=== PATIENT | female | born 1965 | race Caucasian/White ===

== ENCOUNTER 2019-09-24 17:25 | Inpatient (IN) | payer MEDICARE, MEDICAID ==
[~2019-09-24] VITALS: Ht 167.6 cm; Wt 83.0 kg
[2019-09-24] MEDS ORDERED: PANTOPRAZOLE 80 MG in SODIUM CHLORIDE 0.9% 50 ML IV ONE (17:43)
--- NOTE | 2019-09-24 17:55 | NUR ---
THIS IS A 54 YO FEMALE BIB EMS FROM [facility] FOR DIAGNOSIS OF ANEMIA R/T GI BLEED, LEFT SIDED PLEURAL EFFUSION AND PNA. PATIENT HAS BEEN SICK SINCE THIS PAST WEEKEND WITH +N/V AND WEAKNESS. PATIENT ARRIVES ON 2L NC SPO2 AT 100%, TITRATED DOWN TO 1.5L, AT 98%. IVF INFUSING EN ROUTE. 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 VSS, NADN AT THIS TIME. CALL LIGHT IN REACH. WILL CONTINUE TO MONITOR.
--- NOTE | 2019-09-24 18:03 | NUR ---
REPORT GIVEN TO NOAM CARRANZA. PLAN OF CARE DISCUSSED
[2019-09-24] MEDS ORDERED: LISI5TAB7 PO (18:10)
[2019-09-24] MEDS ORDERED: MELO7.5T31 PO (18:11)
[2019-09-24] MEDS ORDERED: METF500T17 PO (18:11)
[2019-09-24] MEDS ORDERED: GABA600T7 PO (18:11)
[2019-09-24 18:12] LABS: BASOPHILS # (AUTO) 0.03 x10^3/uL (0-0.1); BASOPHILS % (AUTO) 0 % (0-1); EOSINOPHILS # (AUTO) 0.12 x10^3/uL (0-0.4); EOSINOPHILS % (AUTO) 2 % (1-7); LYMPHOCYTES # (AUTO) 1.45 x10^3/uL (1-3.4); LYMPHOCYTES % (AUTO) 21 % (22-44); MD NO; MEAN CORPUSCULAR HEMOGLOBIN 32.3 pg (27.0-34.8); MEAN CORPUSCULAR HGB CONC 32.9 g/dL (32.4-35.8); MEAN PLATELET VOLUME 7.7 fL (7.4-10.4); MONOCYTES # (AUTO) 0.51 x10^3/uL (0.2-0.8); MONOCYTES % (AUTO) 8 % (2-9); NEUTROPHILS # (AUTO) 4.75 x10^3/uL (1.8-6.8); NEUTROPHILS % (AUTO) 69 % (42-75); PLATELET COUNT 276 x10^3/uL (130-400); RED BLOOD COUNT 2.44 x10^6/uL (3.82-5.3); RED CELL DISTRIBUTION WIDTH 13.7 % (9.6-15.2)
[2019-09-24] MEDS ORDERED: FEXO1TAB29 PO (18:12)
[2019-09-24 18:17] LABS: ALANINE AMINOTRANSFERASE 38 U/L (12-78); ALBUMIN 3.3 g/dL (3.4-5.0); ANION GAP 7 mmol/L (5-15); CALCIUM 8.4 mg/dL (8.5-10.1); CHLORIDE 103 mmol/L (98-107); CREATININE 0.85 mg/dL (0.55-1.02)
[2019-09-24 18:18] LABS: PROTHROMBIN TIME 10.6 Seconds (9.6-11.5)
[2019-09-24 18:19] LABS: ALKALINE PHOSPHATASE 102 U/L (45-117); BILIRUBIN,TOTAL 0.2 mg/dL (0.2-1.0)
[2019-09-24] MEDS ORDERED: ONDANSETRON ODT 4 MG PO PRN (19:00)
[2019-09-24] MEDS ORDERED: POLYETHYLENE GLYCOL 17 GM PACKET PO PRN (19:00)
[2019-09-24] MEDS ORDERED: BISACODYL 10 MG SUPP PR PRN (19:00)
--- NOTE | 2019-09-24 19:00 | NUR ---
Received report from Kassidy SANTACRUZ.
--- NOTE | 2019-09-24 19:01 | NUR ---
Made rounds on pt, resting quietly at this time. Pt requesting food. Note to provider.
--- NOTE | 2019-09-24 22:46 | NUR ---
Pt resting quietly and comfortably at this time, voices no concerns or complaints.
[2019-09-25 00:37] VITALS: BP 119/79
[2019-09-25] MEDS: PANTOPRAZOLE 80 MG in SODIUM CHLORIDE 0.9% 100 ML IV SCH ×2 (00:43→15:44)
[2019-09-25] MEDS: ACETAMINOPHEN 325 MG TABLET PO PRN ×3 (00:43→22:58)
[2019-09-25] MEDS: GABAPENTIN 300 MG CAPSULE PO SCH ×4 (00:44→20:09)
[2019-09-25] MEDS: SODIUM CHLORIDE FLUSH 10ML SYR IVF SCH ×3 (00:44→20:09)
[2019-09-25 05:46] LABS: ANION GAP 5 mmol/L (5-15); CALCIUM 8.5 mg/dL (8.5-10.1); CHLORIDE 107 mmol/L (98-107); CREATININE 0.72 mg/dL (0.55-1.02)
[2019-09-25 06:54] LABS: MEAN CORPUSCULAR HEMOGLOBIN 32.2 pg (27.0-34.8); MEAN CORPUSCULAR HGB CONC 32.7 g/dL (32.4-35.8); MEAN PLATELET VOLUME 8.1 fL (7.4-10.4); PLATELET COUNT 243 x10^3/uL (130-400); RED CELL DISTRIBUTION WIDTH 13.8 % (9.6-15.2)
[2019-09-25 07:11] LABS: BASOPHILS # (AUTO) 0.03 x10^3/uL (0-0.1); BASOPHILS % (AUTO) 1 % (0-1); EOSINOPHILS # (AUTO) 0.13 x10^3/uL (0-0.4); EOSINOPHILS % (AUTO) 3 % (1-7); LYMPHOCYTES # (AUTO) 1.67 x10^3/uL (1-3.4); LYMPHOCYTES % (AUTO) 36 % (22-44); MD SCAN; MONOCYTES # (AUTO) 0.45 x10^3/uL (0.2-0.8); MONOCYTES % (AUTO) 10 % (2-9); NEUTROPHILS # (AUTO) 2.44 x10^3/uL (1.8-6.8); NEUTROPHILS % (AUTO) 52 % (42-75)
[2019-09-25] MEDS ORDERED: LISINOPRIL 10 MG TABLET ONE (07:50)
[2019-09-25 07:56] VITALS: BP 128/81
[2019-09-25] MEDS: SENNA/DOCUSATE TABLET PO SCH (07:58)
[2019-09-25] MEDS ORDERED: LISINOPRIL 20 MG TABLET PO SCH (09:00)
[2019-09-25] MEDS ORDERED: BUTALB/APAP/CAFFEINE 50MG/325MG/40MG PO PRN (10:00)
[2019-09-25] MEDS: HYDROcodone/APAP 5/325 TABLET PO PRN ×3 (10:32→22:57)
[2019-09-25 12:36] VITALS: BP 153/92
[2019-09-25] MEDS: THIAMINE 100MG TABLET PO SCH ×2 (14:41→20:09)
[2019-09-25] MEDS: PANTOPRAZOLE 40 MG IV IVPush SCH (16:38)
[2019-09-25 19:43] VITALS: BP 115/75
[2019-09-25 22:46] VITALS: BP 120/70
[2019-09-26 00:17] VITALS: BP 110/76
[2019-09-26] MEDS: PANTOPRAZOLE 40 MG IV IVPush SCH (04:05)
[2019-09-26 04:49] LABS: HCG UR SG 1.011 (1.003-1.030)
[2019-09-26 05:20] LABS: BASOPHILS # (AUTO) 0.03 x10^3/uL (0-0.1); BASOPHILS % (AUTO) 1 % (0-1); EOSINOPHILS % (AUTO) 5 % (1-7); LYMPHOCYTES # (AUTO) 2.02 x10^3/uL (1-3.4); LYMPHOCYTES % (AUTO) 34 % (22-44); MD NO; MEAN CORPUSCULAR HEMOGLOBIN 33.1 pg (27.0-34.8); MEAN CORPUSCULAR HGB CONC 33.8 g/dL (32.4-35.8); MEAN PLATELET VOLUME 8.1 fL (7.4-10.4); MONOCYTES # (AUTO) 0.62 x10^3/uL (0.2-0.8); MONOCYTES % (AUTO) 10 % (2-9); NEUTROPHILS # (AUTO) 3.01 x10^3/uL (1.8-6.8); NEUTROPHILS % (AUTO) 50 % (42-75); PLATELET COUNT 270 x10^3/uL (130-400)
[2019-09-26 05:24] LABS: ALBUMIN 3.1 g/dL (3.4-5.0); ANION GAP 5 mmol/L (5-15); CALCIUM 8.9 mg/dL (8.5-10.1); CHLORIDE 105 mmol/L (98-107)
[2019-09-26 05:27] LABS: ALANINE AMINOTRANSFERASE 37 U/L (12-78); ALKALINE PHOSPHATASE 99 U/L (45-117); BILIRUBIN,TOTAL 0.2 mg/dL (0.2-1.0); CREATININE 0.73 mg/dL (0.55-1.02); TOTAL PROTEIN 6.4 g/dL (6.4-8.2)
[2019-09-26] MEDS ORDERED: CHLORHEXIDINE 15 ML UDC ONE (07:34)
[2019-09-26] MEDS ORDERED: PROPOFOL 10 MG/ML, 20ML ONE (07:59)
[2019-09-26] MEDS ORDERED: MIDAZOLAM 1 MG/ML, 2ML ONE (07:59)
[2019-09-26] MEDS ORDERED: SODIUM CHLORIDE 0.9% 1,000 ML IV SCH (08:00)
[2019-09-26] MEDS: HYDROcodone/APAP 5/325 TABLET PO PRN (08:55)
[2019-09-26] MEDS: SENNA/DOCUSATE TABLET PO SCH (08:55)
[2019-09-26] MEDS: GABAPENTIN 300 MG CAPSULE PO SCH (08:56)
[2019-09-26] MEDS: THIAMINE 100MG TABLET PO SCH (08:56)
[2019-09-26] MEDS: SODIUM CHLORIDE FLUSH 10ML SYR IVF SCH (08:56)
[2019-09-26] MEDS ORDERED: LISINOPRIL 10 MG TABLET PO SCH (09:00)
[2019-09-26 09:05] VITALS: BP 141/83
[2019-09-26] MEDS ORDERED: OMEP-110 PO (10:05)
[2019-09-26] MEDS ORDERED: FERR325T16 PO (10:05)
[2019-09-26 11:30] VITALS: BP 144/78
[2019-09-27] MEDS ORDERED: OMEPRAZOLE 20 MG CAPSULE.DR PO SCH (06:00)
== END 2019-09-26 12:14 | disposition home or self-care (01) | DRG 378 ==
LOC: ED 18:16 → EDIP 18:27 → 4NE 09-25 00:11 → DCLOUNGE 09-26 12:09
PROVIDERS: ADMIT Internal Medicine; ATTEND Internal Medicine
PROC: 0DB68ZX Excision of Stomach, Via Natural or Artificial Opening Endoscopic, Diagnostic (ICD-10-PCS; 2019-09-26)
PROC: 0DB98ZX Excision of Duodenum, Via Natural or Artificial Opening Endoscopic, Diagnostic (ICD-10-PCS; principal; 2019-09-26 15:30)
DX: K92.2 Gastrointestinal hemorrhage, unspecified (principal); E87.1 Hypo-osmolality and hyponatremia; K92.1 Melena; E11.42 Type 2 diabetes mellitus with diabetic polyneuropathy; D50.9 Iron deficiency anemia, unspecified; E11.43 Type 2 diabetes mellitus with diabetic autonomic (poly)neuropathy; K31.84 Gastroparesis; M19.90 Unspecified osteoarthritis, unspecified site; Z82.49 Family history of ischemic heart disease and other diseases of the circulatory system; Z87.891 Personal history of nicotine dependence; Z98.1 Arthrodesis status; Z79.84 Long term (current) use of oral hypoglycemic drugs; Z03.818 Encounter for observation for suspected exposure to other biological agents ruled out; Z79.1 Long term (current) use of non-steroidal anti-inflammatories (NSAID); Z79.899 Other long term (current) drug therapy; Z80.9 Family history of malignant neoplasm, unspecified
CPT/HCPCS: 36415; 71045; 80048; 80053; 81025; 82607; 82728; 83036; 83540; 83550; 83690; 85014; 85018; 85025; 85610; 85730; 86850; 86900; 87635; 88305; 93005; 96374; G0378; J2250; J2704; C9113; J7030